=== PATIENT | female | born 1955 | race Caucasian/White ===

== ENCOUNTER 2019-08-01 21:08 | Inpatient (IN) | payer MEDICARE, MEDICAID ==
[~2019-08-01] VITALS: Ht 162.6 cm; Wt 70.0 kg
[~2019-08-01 21:08] MED LIST: AMLO-150 PO; AMLO10TA8 PO; ASPI-515 PO; ASPI81TA45 PO; ATOR20TA37 PO; CARV25TA12 PO; CLOP75TA PO; DIAZ5TAB4 PO; DILT120C48 PO; DIVA-59 PO; DIVA250T PO; HYDR-3237 PO; HYDR12.517 PO; HYDR25TA6 PO; INSU100I13 SQ-INSULIN; INSU100V8 SQ; LEVE500T53 PO; LEVE750T8 PO; LISI-170 PO; LOPE-114 PO; MAGN400T50 PO; METO-93 PO; METO25TA35 PO; METO25TA4 PO; MIRT30TA PO; MULT-211 PO; POTA10TA11 PO; POTA20TA6 PO; RIVA15TA PO; SERT25TA PO; SERT50TA28 PO; SIMV20TA3 PO; SIMV40TA PO; SITA1TAB5 PO; VALA500T PO; VERA120T8 PO; VITA1TAB19 PO
[2019-08-01] MEDS ORDERED: ONDANSETRON 2MG/ML, 2ML ONE (21:24)
[2019-08-01] MEDS ORDERED: FAMOTIDINE 20 MG/2 ML ONE (21:24)
[2019-08-01] MEDS ORDERED: MAALOX/HYOSCYAMINE/LIDOCAINE 45 ML BTL ONE (21:24)
[2019-08-01] MEDS ORDERED: ONDANSETRON 2MG/ML, 2ML IVPush ONE (21:30)
[2019-08-01] MEDS ORDERED: FAMOTIDINE 20 MG/2 ML IVPush ONE (21:30)
[2019-08-01] MEDS ORDERED: MAALOX/HYOSCYAMINE/LIDOCAINE 45 ML BTL PO ONE (21:30)
[2019-08-01] MEDS ORDERED: SODIUM CHLORIDE FLUSH 10ML SYR IVF ONE (21:30)
--- NOTE | 2019-08-01 21:38 | NUR ---
REPORT FROM JONNY POE. PT MEDICATED. WILL GIVE GI COCKTAIL AFTER NAUSEA MEDICATIONS HAVE TAKEN EFFECT. VSS. CALL LIGHT IN REACH
[2019-08-01 21:44] LABS: BASOPHILS # (AUTO) 0.03 x10^3/uL (0-0.1); BASOPHILS % (AUTO) 1 % (0-1); EOSINOPHILS % (AUTO) 2 % (1-7); LYMPHOCYTES # (AUTO) 0.96 x10^3/uL (1-3.4); LYMPHOCYTES % (AUTO) 19 % (22-44); MD NO; MEAN CORPUSCULAR HEMOGLOBIN 33.3 pg (27.0-34.8); MEAN CORPUSCULAR HGB CONC 33.6 g/dL (32.4-35.8); MEAN CORPUSCULAR VOLUME 98.8 fL (80-100); MONOCYTES # (AUTO) 0.43 x10^3/uL (0.2-0.8); MONOCYTES % (AUTO) 9 % (2-9); NEUTROPHILS # (AUTO) 3.52 x10^3/uL (1.8-6.8); NEUTROPHILS % (AUTO) 70 % (42-75); PLATELET COUNT 233 x10^3/uL (130-400); RED BLOOD COUNT 3.72 x10^6/uL (3.82-5.3); RED CELL DISTRIBUTION WIDTH 13.3 % (9.6-15.2)
[2019-08-01 21:50] LABS: INTERNATIONAL NORMALIZED RATIO 1.07 (0.93-1.1); PROTHROMBIN TIME 11.2 Seconds (9.6-11.5)
[2019-08-01 21:54] LABS: ALANINE AMINOTRANSFERASE 20 U/L (12-78); ALBUMIN 3.9 g/dL (3.4-5.0); ANION GAP 9 mmol/L (5-15); CALCIUM 8.6 mg/dL (8.5-10.1); CHLORIDE 102 mmol/L (98-107); CREATININE 2.34 mg/dL (0.55-1.02)
[2019-08-01 21:58] LABS: ALKALINE PHOSPHATASE 98 U/L (45-117); BILIRUBIN,TOTAL 0.5 mg/dL (0.2-1.0); TOTAL PROTEIN 8.2 g/dL (6.4-8.2); TROPONIN I < 0.015 ng/mL (0.000-0.045)
[2019-08-01] MEDS ORDERED: MORPHINE SULFATE 4 MG/ML, 1ML ONE (22:11)
--- NOTE | 2019-08-01 22:17 | NUR ---
FLUIDS RUNNING. PT MEDICATED FOR PAIN. TECH AT BEDSIDE FOR REPEAT EKG
--- NOTE | 2019-08-01 22:20 | NUR ---
PT TO CT
[2019-08-01 22:26] LABS: CHOLESTEROL, TOTAL 116 mg/dL (140-239); TRIGLYCERIDES 128 mg/dL (50-200); VLDL CHOLESTEROL 26 mg/dL (0-25)
[2019-08-01 22:27] LABS: CHOL/HDL RATIO 2.5; HDL CHOL % 40 % (28-40); HDL CHOLESTEROL (DIRECT) 46 mg/dL (40-60); LDL CHOLESTEROL,CALCULATED 44 mg/dL (54-169)
[2019-08-01] MEDS ORDERED: MORPHINE SULFATE 4 MG/ML, 1ML IVPush ONE (22:30)
[2019-08-01] MEDS ORDERED: SODIUM CHLORIDE 0.9%, 500ML IVBOLUS ONE (22:30)
--- NOTE | 2019-08-01 22:48 | NUR ---
PT BACK FROM CT AND RESTING. VSS. FLUIDS RUNNING.
[2019-08-02] MEDS ORDERED: morphine SULFATE 10 MG/ML, 1ML IVPush PRN
[2019-08-02] MEDS ORDERED: BISACODYL 10 MG SUPP PR PRN
[2019-08-02] MEDS ORDERED: ONDANSETRON 2MG/ML, 2ML IVPush PRN
[2019-08-02] MEDS ORDERED: PROMETHAZINE 25 MG/ML, 1ML IM PRN
[2019-08-02] MEDS ORDERED: DOCUSATE 100 MG CAPSULE PO PRN
[2019-08-02] MEDS ORDERED: hydrALAzine 20 MG/ML, 1ML IVPush PRN
[2019-08-02] MEDS ORDERED: POLYETHYLENE GLYCOL 17 GM PACKET PO PRN
[2019-08-02 00:25] LABS: HEMOGLOBIN A1C 5.4 % (4.2-6.3)
[2019-08-02 00:27] LABS: FREE T4 (FREE THYROXINE) 1.01 ng/dL (0.76-1.46)
[2019-08-02 01:03] VITALS: BP 138/77
[2019-08-02] MEDS: LACTATED RINGERS 1,000 ML IV SCH ×3 (02:00→13:00)
[2019-08-02] MEDS: OXYcodone IR 5MG TABLET PO PRN ×2 (02:01→14:11)
[2019-08-02] MEDS: PANTOPRAZOLE 40 MG IV IVPush SCH ×2 (02:07→08:38)
[2019-08-02] MEDS: LEVETIRACETAM 500 MG TABLET PO SCH ×3 (02:08→22:46)
[2019-08-02] MEDS: HEPARIN 5,000 UNITS/ML, 1ML SQ SCH ×3 (02:08→16:00)
[2019-08-02] MEDS ORDERED: FLU VACC QS2019-20 36MOS UP/PF 0.5 ML IM-VACC ONE (03:00)
[2019-08-02 05:24] LABS: BASOPHILS # (AUTO) 0.04 x10^3/uL (0-0.1); BASOPHILS % (AUTO) 1 % (0-1); EOSINOPHILS # (AUTO) 0.16 x10^3/uL (0-0.4); EOSINOPHILS % (AUTO) 3 % (1-7); LYMPHOCYTES % (AUTO) 35 % (22-44); MD NO; MEAN CORPUSCULAR HEMOGLOBIN 33.4 pg (27.0-34.8); MEAN CORPUSCULAR VOLUME 98.2 fL (80-100); MEAN PLATELET VOLUME 8.2 fL (7.4-10.4); MONOCYTES # (AUTO) 0.47 x10^3/uL (0.2-0.8); MONOCYTES % (AUTO) 10 % (2-9); NEUTROPHILS # (AUTO) 2.44 x10^3/uL (1.8-6.8); NEUTROPHILS % (AUTO) 51 % (42-75); PLATELET COUNT 211 x10^3/uL (130-400); RED BLOOD COUNT 3.47 x10^6/uL (3.82-5.3); RED CELL DISTRIBUTION WIDTH 12.2 % (9.6-15.2)
[2019-08-02 05:29] LABS: ALBUMIN 3.5 g/dL (3.4-5.0); CHLORIDE 105 mmol/L (98-107)
[2019-08-02 05:34] LABS: ALANINE AMINOTRANSFERASE 13 U/L (12-78); ALKALINE PHOSPHATASE 86 U/L (45-117); ANION GAP 7 mmol/L (5-15); BILIRUBIN,TOTAL 0.4 mg/dL (0.2-1.0); CHOL/HDL RATIO 2.7; CHOLESTEROL, TOTAL 95 mg/dL (140-239); CREATININE 2.02 mg/dL (0.55-1.02); HDL CHOL % 37 % (28-40); HDL CHOLESTEROL (DIRECT) 35 mg/dL (40-60); LDL CHOLESTEROL,CALCULATED 29 mg/dL (54-169); LDL/HDL RATIO 0.8 (0.5-3.0); TOTAL PROTEIN 7.4 g/dL (6.4-8.2); TRIGLYCERIDES 154 mg/dL (50-200); VLDL CHOLESTEROL 31 mg/dL (0-25)
[2019-08-02 07:46] VITALS: BP 178/92
[2019-08-02] MEDS ORDERED: MAGNESIUM SULFATE PMX 4GM/100M 100 ML IVPB ONE (08:30)
[2019-08-02] MEDS ORDERED: POTASSIUM CHLORIDE 40 MEQ in SODIUM CHLORIDE 0.9% 500 ML IV ONE (08:30)
[2019-08-02] MEDS ORDERED: MAGNESIUM SULFATE 4 GM in SODIUM CHLORIDE 0.9% 100 ML IV ONE (08:30)
[2019-08-02] MEDS: MULTIVITAMINS/MINERALS TABLET PO SCH (08:38)
[2019-08-02] MEDS: DILTIAZEM 240 MG CAP.ER.24H PO SCH (08:39)
[2019-08-02] MEDS: ONDANSETRON ODT 4 MG PO PRN ×2 (08:39→18:38)
[2019-08-02] MEDS: SERTRALINE 50MG TABLET PO SCH (08:39)
[2019-08-02] MEDS: ACETAMINOPHEN 325 MG TABLET PO PRN (08:39)
[2019-08-02] MEDS: MULTIVITS,STRESS FORMULA 1 TABLET PO SCH (08:39)
[2019-08-02] MEDS: METOPROLOL SUCCINATE 50 MG TAB.ER.24H PO SCH (08:42)
[2019-08-02] MEDS ORDERED: CLOPIDOGREL 75 MG TABLET PO SCH (09:00)
[2019-08-02] MEDS ORDERED: ASPIRIN 81 MG TABLET EC PO SCH (09:00)
[2019-08-02 12:22] VITALS: BP 164/89
[2019-08-02] MEDS ORDERED: RIVAROXABAN 20 MG TABLET PO SCH (17:00)
[2019-08-02 19:45] VITALS: BP 136/82
[2019-08-03 02:39] VITALS: BP 140/76
[2019-08-03 05:22] LABS: BASOPHILS # (AUTO) 0.04 x10^3/uL (0-0.1); BASOPHILS % (AUTO) 1 % (0-1); EOSINOPHILS # (AUTO) 0.17 x10^3/uL (0-0.4); EOSINOPHILS % (AUTO) 3 % (1-7); LYMPHOCYTES # (AUTO) 1.22 x10^3/uL (1-3.4); LYMPHOCYTES % (AUTO) 21 % (22-44); MD NO; MEAN CORPUSCULAR HEMOGLOBIN 33.1 pg (27.0-34.8); MEAN CORPUSCULAR HGB CONC 33.9 g/dL (32.4-35.8); MEAN CORPUSCULAR VOLUME 97.6 fL (80-100); MEAN PLATELET VOLUME 7.8 fL (7.4-10.4); MONOCYTES # (AUTO) 0.55 x10^3/uL (0.2-0.8); MONOCYTES % (AUTO) 9 % (2-9); NEUTROPHILS # (AUTO) 3.88 x10^3/uL (1.8-6.8); NEUTROPHILS % (AUTO) 66 % (42-75); PLATELET COUNT 188 x10^3/uL (130-400); RED BLOOD COUNT 3.31 x10^6/uL (3.82-5.3); RED CELL DISTRIBUTION WIDTH 12.8 % (9.6-15.2)
[2019-08-03 05:26] LABS: ANION GAP 6 mmol/L (5-15); CALCIUM 8.3 mg/dL (8.5-10.1); CHLORIDE 106 mmol/L (98-107)
[2019-08-03 05:32] LABS: CREATININE 1.95 mg/dL (0.55-1.02)
[2019-08-03] MEDS: METOPROLOL SUCCINATE 50 MG TAB.ER.24H PO SCH (05:43)
[2019-08-03] MEDS: OXYcodone IR 5MG TABLET PO PRN ×3 (05:44→16:57)
[2019-08-03 07:13] VITALS: BP 128/64
[2019-08-03] MEDS ORDERED: POTASSIUM CHLORIDE 40 MEQ in SODIUM CHLORIDE 0.9% 500 ML IV ONE (09:30)
[2019-08-03] MEDS: MULTIVITS,STRESS FORMULA 1 TABLET PO SCH (10:16)
[2019-08-03] MEDS: ONDANSETRON ODT 4 MG PO PRN (10:16)
[2019-08-03] MEDS: MULTIVITAMINS/MINERALS TABLET PO SCH (10:17)
[2019-08-03] MEDS: PANTOPRAZOLE 40 MG IV IVPush SCH (10:17)
[2019-08-03] MEDS: LEVETIRACETAM 500 MG TABLET PO SCH ×2 (10:17→21:46)
[2019-08-03] MEDS: DILTIAZEM 240 MG CAP.ER.24H PO SCH (10:17)
[2019-08-03] MEDS: SERTRALINE 50MG TABLET PO SCH (10:17)
[2019-08-03 12:23] VITALS: BP 144/81
[2019-08-03 12:27] VITALS: BP 135/84
[2019-08-03 12:30] VITALS: BP 145/78
[2019-08-03] MEDS: RIVAROXABAN 15 MG TABLET PO SCH (17:00)
[2019-08-03 20:46] VITALS: BP 157/81
[2019-08-04] MEDS ORDERED: MELATONIN 3 MG TABLET PO PRN (00:30)
[2019-08-04 02:00] VITALS: BP 124/74
[2019-08-04 05:28] LABS: BASOPHILS # (AUTO) 0.02 x10^3/uL (0-0.1); BASOPHILS % (AUTO) 0 % (0-1); EOSINOPHILS # (AUTO) 0.19 x10^3/uL (0-0.4); EOSINOPHILS % (AUTO) 4 % (1-7); LYMPHOCYTES # (AUTO) 1.47 x10^3/uL (1-3.4); LYMPHOCYTES % (AUTO) 32 % (22-44); MD NO; MEAN CORPUSCULAR HEMOGLOBIN 33.9 pg (27.0-34.8); MEAN CORPUSCULAR HGB CONC 34.4 g/dL (32.4-35.8); MEAN CORPUSCULAR VOLUME 98.6 fL (80-100); MEAN PLATELET VOLUME 8.4 fL (7.4-10.4); MONOCYTES # (AUTO) 0.55 x10^3/uL (0.2-0.8); MONOCYTES % (AUTO) 12 % (2-9); NEUTROPHILS % (AUTO) 52 % (42-75); PLATELET COUNT 171 x10^3/uL (130-400); RED BLOOD COUNT 3.14 x10^6/uL (3.82-5.3); RED CELL DISTRIBUTION WIDTH 13.1 % (9.6-15.2)
[2019-08-04 05:32] VITALS: BP 166/91
[2019-08-04 05:35] LABS: ANION GAP 5 mmol/L (5-15); CALCIUM 8.3 mg/dL (8.5-10.1); CHLORIDE 105 mmol/L (98-107)
[2019-08-04 05:36] LABS: CREATININE 1.54 mg/dL (0.55-1.02)
[2019-08-04] MEDS: METOPROLOL SUCCINATE 50 MG TAB.ER.24H PO SCH (05:37)
[2019-08-04] MEDS: OXYcodone IR 5MG TABLET PO PRN (05:37)
[2019-08-04 07:40] VITALS: BP 165/84
[2019-08-04] MEDS: SERTRALINE 50MG TABLET PO SCH (09:00)
[2019-08-04] MEDS: ACETAMINOPHEN 325 MG TABLET PO PRN (09:15)
[2019-08-04] MEDS: DILTIAZEM 240 MG CAP.ER.24H PO SCH (09:16)
[2019-08-04] MEDS: MULTIVITAMINS/MINERALS TABLET PO SCH (09:16)
[2019-08-04] MEDS: LEVETIRACETAM 500 MG TABLET PO SCH ×2 (09:16→21:43)
[2019-08-04] MEDS: MULTIVITS,STRESS FORMULA 1 TABLET PO SCH (09:16)
[2019-08-04] MEDS: PANTOPRAZOLE 40 MG IV IVPush SCH (09:17)
[2019-08-04] MEDS ORDERED: POTASSIUM CHLORIDE 20 MEQ TAB.ER.PRT PO ONE (10:00)
[2019-08-04 12:18] VITALS: BP 140/79
[2019-08-04] MEDS: NS + 20MEQ KCL 1,000 ML IV SCH ×2 (15:15→16:10)
[2019-08-04] MEDS: RIVAROXABAN 15 MG TABLET PO SCH (15:16)
[2019-08-04 18:34] VITALS: BP 175/77
[2019-08-04] MEDS ORDERED: SODIUM CHLORIDE 0.9% 1,000 ML IV SCH (21:00)
[2019-08-04 23:42] VITALS: BP 173/95
[2019-08-05] MEDS: OXYcodone IR 5MG TABLET PO PRN (00:35)
[2019-08-05 02:00] VITALS: BP 191/90
[2019-08-05] MEDS ORDERED: LABETALOL 5 MG/ML SYR. (IV ONLY) IVPush ONE (02:30)
[2019-08-05 02:45] VITALS: BP 151/80
[2019-08-05 05:53] LABS: BASOPHILS # (AUTO) 0.03 x10^3/uL (0-0.1); BASOPHILS % (AUTO) 1 % (0-1); EOSINOPHILS # (AUTO) 0.21 x10^3/uL (0-0.4); EOSINOPHILS % (AUTO) 3 % (1-7); LYMPHOCYTES # (AUTO) 1.39 x10^3/uL (1-3.4); LYMPHOCYTES % (AUTO) 21 % (22-44); MD SCAN; MEAN CORPUSCULAR HEMOGLOBIN 32.5 pg (27.0-34.8); MEAN CORPUSCULAR HGB CONC 33.1 g/dL (32.4-35.8); MEAN CORPUSCULAR VOLUME 98.2 fL (80-100); MEAN PLATELET VOLUME 8.1 fL (7.4-10.4); MONOCYTES # (AUTO) 0.64 x10^3/uL (0.2-0.8); MONOCYTES % (AUTO) 10 % (2-9); NEUTROPHILS # (AUTO) 4.45 x10^3/uL (1.8-6.8); NEUTROPHILS % (AUTO) 66 % (42-75); PLATELET COUNT 177 x10^3/uL (130-400); RED BLOOD COUNT 3.27 x10^6/uL (3.82-5.3); RED CELL DISTRIBUTION WIDTH 13.1 % (9.6-15.2)
[2019-08-05 05:54] VITALS: BP 194/85
[2019-08-05 05:59] LABS: CHLORIDE 107 mmol/L (98-107)
[2019-08-05 06:10] LABS: ALANINE AMINOTRANSFERASE 7 U/L (12-78); ALBUMIN 3.4 g/dL (3.4-5.0); ALKALINE PHOSPHATASE 71 U/L (45-117); ANION GAP 5 mmol/L (5-15); BILIRUBIN,TOTAL 0.3 mg/dL (0.2-1.0); CALCIUM 8.5 mg/dL (8.5-10.1); CREATININE 1.08 mg/dL (0.55-1.02); TOTAL PROTEIN 7.4 g/dL (6.4-8.2)
[2019-08-05 07:15] VITALS: BP 154/81
[2019-08-05] MEDS ORDERED: POTASSIUM CHLORIDE 20 MEQ TAB.ER.PRT PO ONE (08:30)
[2019-08-05] MEDS: SERTRALINE 50MG TABLET PO SCH ×2 (09:00→09:52)
[2019-08-05] MEDS: PANTOPRAZOLE 40 MG IV IVPush SCH (09:51)
[2019-08-05] MEDS: MULTIVITAMINS/MINERALS TABLET PO SCH (09:52)
[2019-08-05] MEDS: DILTIAZEM 240 MG CAP.ER.24H PO SCH (09:53)
[2019-08-05] MEDS: LEVETIRACETAM 500 MG TABLET PO SCH (09:53)
[2019-08-05] MEDS: MULTIVITS,STRESS FORMULA 1 TABLET PO SCH (09:53)
[2019-08-05] MEDS: METOPROLOL SUCCINATE 50 MG TAB.ER.24H PO SCH (10:40)
[2019-08-05] MEDS ORDERED: SODIUM CHLORIDE 0.9% 1,000 ML IV SCH (21:00)
== END 2019-08-05 12:19 | disposition home or self-care (01) | DRG 438 ==
LOC: ED 21:38 → EDIP 22:05 → 3N 23:30 → DCLOUNGE 08-05 12:08
PROVIDERS: ADMIT Internal Medicine; ATTEND Internal Medicine
DX: K85.30 Drug induced acute pancreatitis without necrosis or infection (principal); N17.0 Acute kidney failure with tubular necrosis; D68.69 Other thrombophilia; I12.9 Hypertensive chronic kidney disease with stage 1 through stage 4 chronic kidney disease, or unspecified chronic kidney disease; E11.22 Type 2 diabetes mellitus with diabetic chronic kidney disease; E78.5 Hyperlipidemia, unspecified; E83.42 Hypomagnesemia; E86.0 Dehydration; E87.6 Hypokalemia; F12.90 Cannabis use, unspecified, uncomplicated; G40.909 Epilepsy, unspecified, not intractable, without status epilepticus; I48.0 Paroxysmal atrial fibrillation; J44.9 Chronic obstructive pulmonary disease, unspecified; K52.9 Noninfective gastroenteritis and colitis, unspecified; B19.20 Unspecified viral hepatitis C without hepatic coma; N18.3 Chronic kidney disease, stage 3 (moderate); N83.209 Unspecified ovarian cyst, unspecified side; Z85.118 Personal history of other malignant neoplasm of bronchus and lung; Z86.73 Personal history of transient ischemic attack (TIA), and cerebral infarction without residual deficits; Z87.891 Personal history of nicotine dependence; Z91.14 Patient's other noncompliance with medication regimen; Z91.19 Patient's noncompliance with other medical treatment and regimen; Z92.21 Personal history of antineoplastic chemotherapy; Z92.3 Personal history of irradiation
CPT/HCPCS: 36415; 71045; 74176; 80048; 80053; 80061; 80307; 82962; 83036; 83690; 83735; 84100; 84439; 84443; 84484; 85025; 85610; 90686; 93005; 96361; 96374; 96375; G0378; J1644; J2405; J2550; J3480; Q0162; C9113; J0360; J2270; J3475; J3490; J7030; J7040; J7120